=== PATIENT | male | born 1970 | race American Indian/Alaskan Native ===

== ENCOUNTER 2016-12-19 07:22 | Day surgery (SDC) | payer BC ==
[~2016-12-19 07:22] MED LIST: ceFAZolin 2 GM in NACL 0.9% 100 ML IV ONE
--- NOTE | 2016-12-19 08:16 | Anesthesia Day of Surgery ---
Anesthesia Day of Surgery - Day of Surgery Patient Examined: Yes Patient H&P Reviewed: Yes Patient is NPO: Yes
--- NOTE | 2016-12-19 08:16 | Anesthesia Consultation ---
Anesthesia Consult and Med Hx Date of service: 12/19/16 - Airway Anesthetic Teeth Evaluation: Crowns ROM Head & Neck: Adequate Mental/Hyoid Distance: Adequate Mallampati Class: Class I Intubation Access Assessment: Good - Pulmonary Exam CTA: Yes - Cardiac Exam Cardiac Exam: RRR - Pre-Operative Health Status ASA Pre-Surgery Classification: ASA2 Proposed Anesthetic Plan: General - Pulmonary Hx Smoking: Yes (CIGARETTES 1 PPD X 21 YRS, QUIT IN 2014) Hx Sleep Apnea: No - Cardiovascular System Hx Hypertension: Yes (FOR 6 YRS, DR. ARTURO MUNSON- PCP) - Other Systems Hx Cancer: No - Additional Comments Anesthesia Medical History Comments: No previous anesthesia complications.
[2016-12-19] MEDS ORDERED: SUBLIMAZE ONE (08:18)
[2016-12-19] MEDS ORDERED: DIPRIVAN 10 MG/ML IV ONE ×5 (08:19→10:41)
[2016-12-19] MEDS ORDERED: XYLOCAINE 1%/ EPI 1:100,000 INFILTRATI ONE ×6 (08:25→10:42)
[2016-12-19] MEDS ORDERED: MARCAINE 0.25% INFILTRATI ONE ×5 (08:25→10:42)
[2016-12-19] MEDS ORDERED: NACL 0.9% 1000 ML 1,000 ML IV SCH (09:00)
[2016-12-19] MEDS ORDERED: CLEOCIN IV SCH (09:00)
[2016-12-19] MEDS ORDERED: VERSED IV PRN (09:00)
[2016-12-19] MEDS ORDERED: CLEOCIN 600 MG/50 mL 600 MG/50 ML BAG IV SCH (09:00)
[2016-12-19] MEDS ORDERED: NACL 0.9% IV SCH (09:00)
[2016-12-19] MEDS ORDERED: PEPCID IV NR (09:00)
[2016-12-19] MEDS ORDERED: XYLOCAINE MPF 2% ONE (09:16)
[2016-12-19] MEDS ORDERED: NACL 0.9% IR ONE (10:22)
[2016-12-19] MEDS ORDERED: ZOFRAN ONE (10:52)
--- NOTE | 2016-12-19 11:18 | Post Operative Note ---
Pre-op diagnosis: Multiple sebaceous cysts Post-op diagnosis: same Findings: 7cmx 5 cm -Infected trevor cyst Rt gluteal area 5cmx 5cm recurrent trevor cyst Rt lower antr chest wall 3cmx 3cm trevor cyst left scrotum Procedure: Excision 3 large trevor cysts - Rt glureal area, Rt antr chest wall, left scrotum Anesthesia: MAC Surgeon: CATARINO ALVARADO Estimated blood loss: minimal Pathology: list (trevor cyts x 3) Specimen disposition: to lab Condition: stable Disposition: PACU
--- NOTE | 2016-12-19 11:21 | Discharge Summary ---
Short Stay Discharge Plan Diet: regular Wound: keep clean and dry Additional Instructions: To [facility] on 12/22 to change packing gluteal area Follow up with: PRIMARY CARE, [Primary Care Provider] - 7 Days Prescriptions: Clindamycin HCl [Clindamycin Oral] 150 mg PO Q8HR #14 capsule oxyCODONE /ACETAMINOPHEN [Percocet 5/325] 1 tab PO Q4HR PRN #30 tab PRN Reason: Pain
--- NOTE | 2016-12-19 11:31 | Post Anesthesia Evaluation ---
- Post Anesthesia Evaluation Patient Participated: Yes Airway Patent: Yes Stable Respiratory Function: Yes Nausea/Vomiting: No Temp > 96.8F: Yes Pain Manageable: Yes Adequeate Hydration: Yes Anesthesia Complications: No
[2016-12-19] MEDS ORDERED: DILAUDID ONE (11:36)
--- NOTE | 2016-12-19 11:37 | Operative Report ---
PREOPERATIVE DIAGNOSIS: Soft tissue masses, right gluteal region, right lower anterior chest wall and left scrotum, all 3 are sebaceous cysts as described below. POSTOPERATIVE DIAGNOSIS: Multiple sebaceous cysts as described below. OPERATIVE PROCEDURE: Excision of all 3 soft tissue masses. ANESTHESIA: IV sedation, local 1% Xylocaine with 0.25% Marcaine. SPECIMENS: All 3 soft tissue masses sent separately. BLOOD LOSS: Minimal. INDICATIONS: A 46-year-old male patient presenting with a visible and palpable painless mass in the right gluteal area for several months. He had sebaceous cyst excised in the right lower anterior costal margin close to the anterior abdominal wall several years ago that has recurred and symptomatic. He also has a visible and palpable lesion in the left side of the scrotum. FINDINGS: The right gluteal mass, which clinically appears to be a lipoma is a large sebaceous cyst with abscess that has no odor and sebaceous material. This measured 6 cm x 5 cm. The anterior chest wall/abdominal wall mass has recurrent sebaceous cyst without any evidence of infection measuring 5 cm x 5 cm. The left scrotal lesion is 3 x 3 cm sebaceous cyst adjacent to the 0.5 cm sebaceous cyst. All 3 were submitted separately for histopathological examination. DESCRIPTION OF PROCEDURE: After satisfactory IV sedation, initially the patient was placed in right lateral position, the right gluteal area prepped and draped. The skin and subcutaneous tissue was adequately infiltrated with the local anesthetic. An incision was made and this immediately entered into the abscess cavity with drainage of purulent material that was suctioned out. Specimen was sent for culture and sensitivity. The cyst wall that is firmly adherent to the dermis was taken down by blunt and sharp dissection and from the deeper tissue was completely removed. Wound cavity irrigated well with saline solution. Skin margins were approximated with multiple interrupted 4-0 Prolene sutures and the abscess cavity is packed with iodoform packing gauze and dry occlusive dressings were placed. Gloves, gowns and the instruments were completely changed because of this infection and the patient was turned to supine position and the chest wall and abdominal wall was , prepped and draped with ChloraPrep and the scrotal lesion with Phisohex scrub. Initially, the anterior chest wall, abdominal lesion is resected after infiltrating local anesthetic. It was resected completely and taking down the scarring from the previous resection at the lateral part with the minimal bleeding that was controlled by cautery. Subdermal tissue approximated with 3-0 Vicryl skin with 4-0 Monocryl. Pressure dressings were placed with Steri-Strips. After changing gloves, the scrotal lesion on the left side was adequately infiltrated. A piece of the scrotal skin attached to the cyst was removed with the scrotal skin is quite redundant. The hemostasis was quite adequate, this was also closed in 2 layers, 3-0 Vicryl and 4-0 Monocryl sutures. He tolerated the procedure well. JOB# [id number] CHRIS/TAWANDA
[2016-12-19] MEDS: DILAUDID IV PRN ×2 (11:40→11:50)
[2016-12-19 12:08] VITALS: BP 125/90
== END 2016-12-19 12:35 | disposition home or self-care (01) ==
LOC: OR 07:22
PROVIDERS: ATTEND Surgery
DX: L72.0 Epidermal cyst (principal); I10 Essential (primary) hypertension; K21.9 Gastro-esophageal reflux disease without esophagitis; Z79.899 Other long term (current) drug therapy; Z72.89 Other problems related to lifestyle; Z98.890 Other specified postprocedural states; Z87.891 Personal history of nicotine dependence
CPT/HCPCS: 11406; 11423; 82962; 87075; 87116; 88307; J1170; J2250; J2405; J2704; J3010; J7030